=== PATIENT | female | born 1955 | race Caucasian/White ===

== ENCOUNTER 2017-02-07 07:50 | Day surgery (SDC) | payer BC ==
[~2017-02-07 07:50] MED LIST: Acetaminophen TAB* 325 MG PO ONE; Buffered Lidocaine 0.9% SYRIN* 5 ML/SYR SYRINGE INTRADERM ONE; Metoclopramide IV* 5 MG/ML 2 ML VIAL IV SLOW PU ONE; Ondansetron INJ* 2 MG/ML VIAL IV ONE; Sodium Citrate/Citric Acid* 15 ML UDC PO ONE
[2017-02-07] MEDS ORDERED: Acetaminophen TAB* 325 MG ONE (08:15)
[2017-02-07] MEDS ORDERED: Sodium Citrate/Citric Acid* 15 ML UDC ONE (08:16)
[2017-02-07] MEDS ORDERED: Ondansetron INJ* 2 MG/ML VIAL ONE (08:16)
[2017-02-07] MEDS ORDERED: Metoclopramide IV* 5 MG/ML 2 ML VIAL ONE (08:16)
[2017-02-07] MEDS ORDERED: fentaNYL* 50 MCG/ML 2 ML VIAL (100 MCG VIAL) ONE (08:45)
[2017-02-07] MEDS ORDERED: Midazolam* 1 MG/ML 2 ML VIAL (2 MG) ONE (08:45)
[2017-02-07] MEDS ORDERED: Propofol* 10 MG/ML 20 ML BTL IV PUSH ONE ×2 (08:55→09:03)
[2017-02-07] MEDS ORDERED: Lidocaine 2% PF * 5 ML VIAL ONE (08:55)
[2017-02-07] MEDS ORDERED: Ketorolac INJ* 30 MG/ML 1 ML VIAL ONE (08:55)
[2017-02-07] MEDS ORDERED: Bupivacaine 0.5% SDV PF* 30 ML VIAL ONE (10:19)
[2017-02-07] MEDS ORDERED: Clindamycin 900 MG IVPREMIX(* 900 MG/50 ML SDV IV ONE (11:00)
[2017-02-07] MEDS ORDERED: HYDROmorphone* 1 MG/ML 1 ML SYR IV PRN (11:14)
[2017-02-07] MEDS ORDERED: fentaNYL* 50 MCG/ML 2 ML VIAL (100 MCG VIAL) IV PRN (11:14)
[2017-02-07 11:56] VITALS: BP 156/58
--- NOTE | 2017-02-08 01:19 | OP ---
DATE OF OPERATION: 11/07/16 - [facility] DATE OF : 51 SURGEON: Harry Abbasi DPM MAINTENANCE APPRENTICE: None. ANESTHESIOLOGIST: Portia España MD ANESTHESIA: MAC with local. PRE-OP DIAGNOSES: 1. Chronic diabetic ulcer of the distal lateral third left toe with nonhealing and high risk of osteomyelitis, deeper involvement. 2. Rigidly contracted hammertoe deformity, third left toe. POST-OP DIAGNOSIS: 1. Chronic diabetic ulcer of the distal lateral third left toe with nonhealing and high risk of osteomyelitis, deeper involvement. 2. Rigidly contracted hammertoe deformity, third left toe. OPERATIVE PROCEDURE: Partial amputation of third left toe. INDICATIONS: The patient with chronic third left toe rigid deformity and chronic ulceration of the distal lateral aspect of the DIPJ. The wound has not responded to months of debridement and wound care in attempts to offload the area, but due to the deformity, circulatory and diabetic status, determined to amputate the digit, reduce pressure in the area to allow closure of this chronic wound. PATHOLOGY: Amputated distal toe and proximal culture swabs for aerobic, anaerobic, and fungal. HEMOSTASIS: None. DESCRIPTION OF PROCEDURE: The patient was brought to the operating room, placed on the operating table in the supine position. The anesthesia department administered IV sedation and peripheral nerve block was performed about the patient's third left digit with 0.5% Marcaine plain. The left foot was prepped and draped in sterile manner. Attention was directed to the third left digit where 2 semielliptical incisions were made near the proximal interphalangeal joint. The distal digit was disarticulated, the proximal interphalangeal joint and sent off the field. Wound was flushed with copious amounts of normal sterile saline, and culture swabs were then used for aerobic, anaerobic, and fungal cultures. There was no visible evidence of devitalized or purulent or infected or necrotic tissue. Because of the chronic contracture , the plantar soft tissue coverage was inadequate and therefore further amputation of the proximal phalanx was necessary for adequate soft tissue coverage and closure. A straight bone cutter was used to resect the distal aspect of the proximal phalanx, this has been done. Rongeur was used to reduce any sharp rough edges and handheld rasp was used to further dissect any sharp rough surfaces. The surgical site was again flushed with copious amounts of normal sterile saline. The tendinous deep tissue was then reapproximated distally as well as the subcutaneous tissue was reapproximated with 4-0 Polysorb. The skin was then reapproximated, secured with 4-0 nylon. The surgical site was then dressed with Xeroform gauze, sterile 4x4 gauze, Deandre, and ABD pad. The dressing was then secured lightly with Coban wrap. Having appeared to have tolerated the procedure and anesthesia well, the patient was transported via cart from the operating room to Recovery in satisfactory condition with cap refill less than 5 seconds to remaining digits of the left foot. [id number]/[facility] #: [id number] [place]
== END 2017-02-07 11:49 | disposition home or self-care (01) ==
LOC: OREAST 07:50
PROVIDERS: ATTEND Podiatrist Foot Surgery
DX: E11.621 Type 2 diabetes mellitus with foot ulcer (principal); L97.523 Non-pressure chronic ulcer of other part of left foot with necrosis of muscle; M20.42 Other hammer toe(s) (acquired), left foot; M19.072 Primary osteoarthritis, left ankle and foot; Z79.84 Long term (current) use of oral hypoglycemic drugs; I25.10 Atherosclerotic heart disease of native coronary artery without angina pectoris; I10 Essential (primary) hypertension; E11.51 Type 2 diabetes mellitus with diabetic peripheral angiopathy without gangrene; E11.42 Type 2 diabetes mellitus with diabetic polyneuropathy; E11.39 Type 2 diabetes mellitus with other diabetic ophthalmic complication; H40.9 Unspecified glaucoma; E78.00 Pure hypercholesterolemia, unspecified; Z88.5 Allergy status to narcotic agent; Z88.0 Allergy status to penicillin; Z88.8 Allergy status to other drugs, medicaments and biological substances; Z87.891 Personal history of nicotine dependence
CPT/HCPCS: 87070; 87073; 87077; 87102; 87205; 88305; 88311; A9270-GY; J1885; J2250; J2405; J2704; J2765; J3010

== ENCOUNTER 2018-04-24 07:43 | Day surgery (SDC) | payer MEDICARE, OTHER ==
[~2018-04-24 07:43] MED LIST changes: -Acetaminophen TAB* 325 MG PO ONE; +Famotidine IV* 10 MG/ML 2 ML (20 mg) IV ONE; -Metoclopramide IV* 5 MG/ML 2 ML VIAL IV SLOW PU ONE; -Ondansetron INJ* 2 MG/ML VIAL IV ONE; -Sodium Citrate/Citric Acid* 15 ML UDC PO ONE
[2018-04-24] MEDS ORDERED: Lidocaine 1% INJ* 10 MG/ML 30 ML SDV ONE (07:56)
[2018-04-24] MEDS ORDERED: ROPIVACAINE 5 MG/ML 30 ML BTL (0.5%) ONE (07:56)
[2018-04-24] MEDS ORDERED: Famotidine IV* 10 MG/ML 2 ML (20 mg) ONE (07:58)
[2018-04-24] MEDS ORDERED: Clindamycin 900 MG/D5W BAG(*) 900 MG/50 ML BAG IVPB ONE (07:59)
[2018-04-24] MEDS ORDERED: fentaNYL* 50 MCG/ML 2 ML VIAL (100 MCG VIAL) ONE (09:17)
[2018-04-24] MEDS ORDERED: Midazolam* 1 MG/ML 5 ML VIAL (5 MG) ONE (09:17)
[2018-04-24] MEDS ORDERED: Propofol* 10 MG/ML 20 ML BTL IV PUSH ONE (09:18)
[2018-04-24] MEDS ORDERED: Ondansetron INJ* 2 MG/ML VIAL ONE (09:18)
[2018-04-24] MEDS ORDERED: Lidocaine 2% PF * 5 ML VIAL ONE (09:18)
[2018-04-24] MEDS ORDERED: Ketorolac INJ* 30 MG/ML 1 ML VIAL ONE (09:18)
[2018-04-24] MEDS ORDERED: Naloxone* 0.4 MG/ML 1 ML VIAL IV PRN (09:42)
[2018-04-24] MEDS ORDERED: Acetaminophen TAB* 325 MG PO PRN (09:42)
[2018-04-24] MEDS ORDERED: DiMENhydriNATE IV* 50 MG/ML VIAL IV PUSH PRN (09:42)
[2018-04-24 10:39] VITALS: BP 146/59
--- NOTE | 2018-04-25 04:00 | OP ---
DATE OF OPERATION: 04/24/18 [facility] DATE OF : 51 SURGEON: Harry Abbasi DPM [place] ANIMAL DAMAGE CONTROL AGENT: None. ANESTHESIA: MAC with local. PRE-OP DIAGNOSIS: Chronic ulceration with osteomyelitis, fifth left toe. POST-OP DIAGNOSIS: Chronic ulceration with osteomyelitis, fifth left toe. OPERATIVE PROCEDURE: Amputation of the left fifth toe. PATHOLOGY: Amputated toe and aerobic and anaerobic cultures in the proximal wound prior to closure. HEMOSTASIS: Pneumatic ankle tourniquet. ESTIMATED BLOOD LOSS: Less than 10 cc. INDICATIONS: The patient is a longstanding diabetic with peripheral neuropathy with chronic and recurrent ulceration of the fifth left toe which has a hammertoe deformity. The ulceration is deep down to the level of the joint and amputation is needed to treat the infection and limit the need for halfway antibiotic therapy. DESCRIPTION OF PROCEDURE: The patient was brought to the operating room, placed on the operating table in supine position. The anesthesia department administered IV sedation. A peripheral nerve block was performed about the left lateral forefoot with a 1:1 mixture of 1% lidocaine plain and 0.5% ropivacaine plain. The left foot was prepped and draped in the usual fashion. An Esmarch bandage was utilized to exsanguinate the left foot and a pneumatic ankle tourniquet was inflated to 250 mmHg above a well-padded left ankle. Attention was directed to the fifth left digit. It was noted to have some edema , erythema and draining ulceration at the PIPJ. Two converging semi- elliptical incisions were made proximally ensuring enough soft tissue closure. The incisions were deepened in subcutaneous tissues. The fat exposed the articulation and the tendinous and ligamentous structures were incised and the digit was disarticulated and sent off the field. Next, copious amounts of normal sterile saline was used to flush this wound. Aerobic and anaerobic culture swabs were taken. Some of the tendon and capsular tissues were reapproximated and secured and then layered closure with 4-0 Vicryl. The skin was then closed with 5-0 nylon. The incision was dressed with Xeroform gauze and sterile dressing was applied to the left forefoot secured with Coban wrap throughout. The pneumatic ankle tourniquet was deflated about the left ankle and a prompt hyperemic response was noted about all the remaining digits. Having appeared to have tolerated the anesthesia and procedures well, the patient was transported in satisfactory condition with capillary refill less than 3 seconds to the remaining digits. [id number]/[facility] #: [id number] [facility]
== END 2018-04-24 10:59 | disposition home or self-care (01) ==
LOC: OREAST 07:43
PROVIDERS: ATTEND Podiatrist Foot Surgery
DX: M86.8X7 Other osteomyelitis, ankle and foot (principal); E11.42 Type 2 diabetes mellitus with diabetic polyneuropathy; N18.4 Chronic kidney disease, stage 4 (severe); E78.5 Hyperlipidemia, unspecified; I12.9 Hypertensive chronic kidney disease with stage 1 through stage 4 chronic kidney disease, or unspecified chronic kidney disease; Z87.891 Personal history of nicotine dependence; I25.810 Atherosclerosis of coronary artery bypass graft(s) without angina pectoris
CPT/HCPCS: 87070; 87073; 87077; 87116; 87205; 87206; J1885; J2250; J2405; J2704; J2795; J3010